=== PATIENT | male | born 1995 | race Caucasian/White ===

== ENCOUNTER 2017-02-09 20:08 | Emergency (ER) | payer OTHER ==
[~2017-02-09] VITALS: Ht 162.6 cm; Wt 55.0 kg
[~2017-02-09 20:08] MED LIST: IBUP800T25 PO
[2017-02-09 20:15] VITALS: Ht 162.6 cm; Wt 55.0 kg
--- NOTE | 2017-02-09 20:40 | ERD ---
ER Documentation Chief Complaint Chief Complaint Eye pain, yellow crust present HPI 21-year-old male presents here to emergency department for complaints of right upper eyelid redness swelling yellow crusts, right eye redness and right eye discharge that started this morning. Patient woke up with bilateral upper and lower eyelids closed shut. Patient denies any pain in the eye but is complaining of some burning pain in the right upper eyelid, burning pain 4/10 scale, as was upon touching the area. ROS All systems reviewed and are negative except as per history of present illness. Medications Home Meds Active Scripts Ibuprofen* (Motrin*) 800 Mg Tab, 800 MG PO Q8, #10 TAB Prov:DAVID ARTEAGA MD 08/04/15 Allergies Allergies: Coded Allergies: azithromycin (Verified Allergy, Severe, 08/04/15) PMhx/Soc Medical and Surgical Hx: pt denies Surgical Hx History of Surgery: No Anesthesia Reaction: No Hx Neurological Disorder: No Hx Respiratory Disorders: No Hx Cardiac Disorders: Yes (Murmur) Hx Psychiatric Problems: No Hx Miscellaneous Medical Probl: No Hx Alcohol Use: No Hx Substance Use: No Hx Tobacco Use: No Smoking Status: Never smoker FmHx Family History: No coronary disease, No diabetes, No other Physical Exam Vitals Vital Signs Date Time Temp Pulse Resp B/P Pulse Ox O2 Delivery O2 Flow Rate FiO2 02/09/17 20:15 98.0 75 20 134/91 99 Physical Exam GENERAL: The patient is well developed and appropriate for usual state of health, in no apparent distress. HEENT: Atraumatic. bilateral eyes are PERRLA EOM intact noted right upper eyelid to be erythematous with crusting of yellowish discharge. Normal tympanic membrane, no erythema or bulging. No ear canal swelling. No ear discharge. Nose: normal nasal turbinates, no erythema or swelling. Normal nasal discharge. Throat: oropharynx clear. No tonsillar swelling or tonsillar exudates. No lymphadenopathy. CHEST: Clear to auscultation bilaterally. There are no rales, wheezes or rhonchi. HEART: Regular rate and rhythm. No murmurs, clicks, rubs or gallops. No S3 or S4. ABDOMEN: Soft, nontender and nondistended. Good bowel sounds. No rebound or guarding. No gross peritonitis. No gross organomegaly or masses. No Pelayo sign or McBurney point tenderness. BACK: No midline or flank tenderness. EXTREMITIES: Equal pulses bilaterally. There is no peripheral clubbing, cyanosis or edema. No focal swelling or erythema. Full range of motion. Grossly neurovascularly intact. NEURO: Alert and oriented. Cranial nerves 2-12 intact. Motor strength in all 4 extremities with 5/5 strength. Sensation grossly intact. Normal speech and gait. SKIN: There is no apparent rash or petechia. The skin is warm and dry. HEMATOLOGIC AND LYMPHATIC: There is no evidence of excessive bruising or lymphedema. No gross cervical, axillary, or inguinal lymphadenopathy. Procedures/MDM Medical decision making: Patient symptoms was likely consisted of right upper eyelid blepharitis and conjunctivitis. No symptoms of orbital or periorbital cellulitis. No symptoms of sepsis, patient appears well and is hemodynamically stable, patient was given prescription for erythromycin, Polytrim eyedrops, ibuprofen, is advised to follow-up with primary care doctor in 2-3 days for reevaluation of symptoms. Patient is advised to return to emergency department for any worsening symptoms. Disposition: Home. Stable. Departure Diagnosis: Primary Impression: Blepharitis Blepharitis type: ulcerative Laterality: right Eyelid: upper Qualified Code: H01.011 - Ulcerative blepharitis of right upper eyelid Additional Impression: Conjunctivitis Conjunctivitis type: acute Acute conjunctivitis type: bacterial Laterality : right Qualified Code: H10.31 - Acute bacterial conjunctivitis of right eye Condition: Stable Patient Instructions: Blepharitis, Conjunctivitis Caused by Infection NARAYAN MONTERROSO NP Feb 09, 2017 20:40
[2017-02-09] MEDS ORDERED: IBUP-1542 PO (20:44)
[2017-02-09] MEDS ORDERED: TOBDEXOI BOTH EYES (20:44)
[2017-02-09] MEDS ORDERED: POLY10DR RIGHT EYE (20:44)
== END 2017-02-09 20:55 | disposition home or self-care (01) ==
LOC: FTE 20:08
DX: H01.011 Ulcerative blepharitis right upper eyelid (principal); H10.31 Unspecified acute conjunctivitis, right eye
CPT/HCPCS: 99283

== ENCOUNTER 2017-02-19 02:15 | Emergency (ER) | END 2017-02-19 05:49 | disposition home or self-care (01) ==

== ENCOUNTER 2017-05-09 16:01 | Emergency (ER) | END 2017-05-09 16:20 | disposition home or self-care (01) ==